=== PATIENT | male | born 1965 | race African-American/Black ===

== ENCOUNTER 2018-05-07 17:21 | Emergency (ER) | payer OTHER ==
[2018-05-07 18:10] LABS: Absolute Lymphocytes (CBC) 1.1 K/uL (0.7-4.9); Absolute Monocytes 0.8 K/uL (0.1-1.3); Absolute Neutrophil 4.7 K/uL (1.8-8.0); Basophils % 0.6 % (0-1.3); Eosinophils % 1.3 % (0-4.4); Hematocrit 42.6 % (39.6-49.0); Lymphocytes % 15.9 % (15.3-44.8); MPV 8.2 fL (7.6-11.3); Monocytes % 11.3 % (3.3-12.3); RBC Red Blood Cell Count 5.25 M/uL (4.33-5.43)
[2018-05-07 18:12] LABS: Protime INR 1.05
[2018-05-07 18:17] LABS: Urine Blood NEGATIVE (NEG); Urine Glucose NEGATIVE (NEG); Urine Protein NEGATIVE (NEG); Urine pH 5.5 (5.0-7.0)
[2018-05-07 18:26] LABS: ALT/SGPT 29 U/L (12-78); AST/SGOT 22 U/L (15-37); Albumin 3.9 g/dL (3.4-5.0); Alkaline Phosphatase 66 U/L (45-117); BUN Blood Urea Nitrogen 11 mg/dL (7-18); Bicarbonate 28 mmol/L (21-32); Bilirubin Direct 0.2 mg/dL (0-0.2); Bilirubin Total 0.6 mg/dL (0.2-1.0); Glucose Level 93 mg/dL (74-106); Magnesium 2.1 mg/dL (1.8-2.4); NT PRO-BNP 19 pg/mL (<125); Potassium 3.2 mmol/L (3.5-5.1); Protein, Total 7.9 g/dL (6.4-8.2); Sodium Level 136 mmol/L (136-145); Troponin (Emerg Dept Use Only) < 0.02 ng/mL (0.0-0.045)
--- NOTE | 2018-05-07 18:38 | RAD REPORT ---
EXAM DESCRIPTION: RAD - Chest Single View - 05/07/2018 6:06 pm CLINICAL HISTORY: CHEST PAIN Chest pain. COMPARISON: CHEST SINGLE VIEW dated 11/04/2008 FINDINGS: Portable technique limits examination quality. The lungs are grossly clear. The heart is normal in size. No displaced fractures. IMPRESSION: No acute intrathoracic process suspected.
--- NOTE | 2018-05-07 20:05 | EDPHYS ---
Physician Documentation [facility] Name: Stefan Nicolas Age: 52 yrs Sex: Male : 1965 Arrival Date: 05/07/2018 Time: 17:26 Bed 18 Private MD: out of town, doctor ED Physician Lavelle Martinez HPI: 05/07 17:42 This 52 yrs old Black Male presents to ER via Ambulatory with complaints of Chest jmm Tightness, Sinus Congestion, Ear Pain. 17:42 The patient or guardian reports cough. Onset: The symptoms/episode began/occurred jmm gradually, 1 week(s) ago. Associated signs and symptoms:. This is a 52 year old male with a history of htn, hlp that presents to the ED with complaints of right frontal sinus pain, cough, congestion for 1 week. Denies fever. patient states approx 2 hour prior to arrival he developed left sided chest tightness which radiates to his back. . Historical: - Allergies: 17:32 No Known Allergies; hj - Home Meds: 17:32 escitalopram oxalate 10 mg oral tab 1 tab once daily [Active]; aspirin 81 mg Oral chew hj 1 tab once daily [Active]; rosuvastatin 20 mg oral tab 1 tab once daily [Active]; losartan-hydrochlorothiazide 100-25 mg oral tab 1 tab once daily [Active]; amlodipine 10 mg tab 1 tab once daily [Active]; - PMHx: 17:32 Hypertension; Hyperlipidemia; hj - PSHx: 17:32 achilles surgery; hj - Immunization history:: Adult Immunizations up to date. - Social history:: Smoking status: Patient/guardian denies using tobacco, Patient uses alcohol. - Ebola Screening: : Patient negative for fever greater than or equal to 101.5 degrees Fahrenheit, and additional compatible Ebola Virus Disease symptoms Patient denies exposure to infectious person Patient denies travel to an Ebola-affected area in the 21 days before illness onset. ROS: 17:42 Constitutional: Negative for fever, chills, and weight loss. jmm 17:42 ENT: Positive for sinus congestion, sinus pain. 17:42 Cardiovascular: Positive for chest pain. 17:42 Respiratory: Positive for cough. 17:42 All other systems are negative. Exam: 17:42 Constitutional: This is a well developed, well nourished patient who is awake, alert, jmm and in no acute distress. Head/Face: atraumatic. Eyes: EOMI, no conjunctival erythema appreciated ENT: Moist Mucus Membranes Neck: Trachea midline, Supple Chest/axilla: Normal chest wall appearance and motion. 17:42 Cardiovascular: Rate: normal, Rhythm: regular. 17:42 Respiratory: the patient does not display signs of respiratory distress, Respirations: normal, Breath sounds: are clear throughout. 17:42 Abdomen/GI: Inspection: abdomen appears normal, Bowel sounds: normal. 17:42 Back: ROM is normal. 17:42 Musculoskeletal/extremity: ROM: intact in all extremities. 17:42 Skin: Appearance: Color: 17:42 Neuro: Orientation: is normal, Mentation: is normal, Memory: is normal. 17:42 Psych: Behavior/mood is pleasant, cooperative. Vital Signs: 17:33 BP 140 / 99; Pulse 75; Resp 18; Temp 97.9(O); Pulse Ox 100% on R/A; Weight 99.79 kg; Height 6 ft. 3 in. (190.50 cm); Pain 3/10; 17:50 BP 140 / 96; Pulse 69; Resp 18; Pulse Ox 99% on R/A; Pain 1/10; em 18:44 BP 130 / 96; Pulse 72; Resp 14; Pulse Ox 100% on R/A; em 19:15 BP 139 / 98; Pulse 85; Resp 17 S; Pulse Ox 99% on R/A; jd3 17:33 Body Mass Index 27.50 (99.79 kg, 190.50 cm) MDM: 17:42 Patient medically screened. [facility] 19:11 Data reviewed: vital signs, nurses notes. [facility] 19:59 Data reviewed: lab test result(s). Counseling: I had a detailed discussion with the [facility] patient and/or guardian regarding: the historical points, exam findings, and any diagnostic results supporting the discharge/admit diagnosis, lab results, radiology results, the need for outpatient follow up, to return to the emergency department if symptoms worsen or persist or if there are any questions or concerns that arise at home. Refusal of service: The patient/guardian displays adequate decision making capability and despite a detailed discussion of alternatives, benefits, risks, and consequences refuses: Admission to the hospital for further work-up and treatment. ED course: Repeat enzymes negative. I advised the patient to follow up with his pcp for reevaluation. I advised the patient of the need for admission due to cardiac risk factors and risks of undiagnosed acute cardiac conditions. . 05/07 17:44 Order name: Basic Metabolic Panel; Complete Time: 18:34 [facility] 05/07 17:44 Order name: CBC with Diff; Complete Time: 18:34 [facility] 05/07 17:44 Order name: LFT's; Complete Time: 18:34 [facility] 05/07 17:44 Order name: Magnesium; Complete Time: 18:34 [facility] 05/07 17:44 Order name: NT PRO-BNP; Complete Time: 18:34 [facility] 05/07 17:44 Order name: PT-INR; Complete Time: 18:34 [facility] 05/07 17:34 Order name: EKG; Complete Time: 17:35 05/07 17:44 Order name: Troponin (emerg Dept Use Only); Complete Time: 18:34 [facility] 05/07 17:44 Order name: XRAY Chest (1 view); Complete Time: 18:40 [facility] 05/07 17:44 Order name: Cardiac monitoring; Complete Time: 18:06 [facility] 05/07 17:44 Order name: EKG - Nurse/Tech; Complete Time: 18:06 [facility] 05/07 17:44 Order name: IV Saline Lock; Complete Time: 18:06 [facility] 05/07 18:00 Order name: Urine Dipstick--Ancillary (enter results); Complete Time: 18:34 sd 05/07 19:11 Order name: Troponin (emerg Dept Use Only); Complete Time: 19:57 [facility] 05/07 17:44 Order name: Labs collected and sent; Complete Time: 18:06 [facility] 05/07 17:44 Order name: O2 Per Protocol; Complete Time: 18:06 [facility] 05/07 17:44 Order name: O2 Sat Monitoring; Complete Time: 18:06 [facility] 05/07 17:49 Order name: Urine Dipstick-Ancillary (obtain specimen); Complete Time: 18:05 [facility] 05/07 19:11 Order name: EKG - Nurse/Tech; Complete Time: 19:27 jm Administered Medications: No medications were administered Disposition: 05/08 17:38 Co-signature as Attending Physician, Lavelle Martinez MD. Disposition: 05/07/18 20:04 Discharged to Home. Impression: Acute upper respiratory infection, unspecified, Chest pain, unspecified. - Condition is Stable. - Discharge Instructions: Nonspecific Chest Pain, Upper Respiratory Infection, Adult. - Prescriptions for Zithromax Z- Geovanni 250 mg Oral Tablet - take 1 tablet by ORAL route as directed for 5 days Day 1 - take two (2) tablets one time. Day 2, 3, 4 , 5 take one (1) tablet once daily.; 6 tablet. - Medication Reconciliation Form, Thank You Letter, Antibiotic Education, Prescription Opioid Use form. - Follow up: Private Physician; When: 1 - 2 days; Reason: Recheck today's complaints, Continuance of care, Re-evaluation by your physician. Signatures: Dispatcher [employer] EDMS Bala Jimenes PA PA jmm Joaquin, Henry, RN RN hj Lavelle Martinez MD MD gs Davies, Jonathon, RN RN jd3 Corrections: (The following items were deleted from the chart) 05/07 20:28 20:04 05/07/2018 20:04 Discharged to Home. Impression: Acute upper respiratory jd3 infection, unspecified; Chest pain, unspecified. Condition is Stable. Forms are Medication Reconciliation Form, Thank You Letter, Antibiotic Education, Prescription Opioid Use. Follow up: Private Physician; When: 1 - 2 days; Reason: Recheck today's complaints, Continuance of care, Re-evaluation by your physician. tricia
--- NOTE | 2018-05-07 20:05 | ER ---
Nurse's Notes [facility] Name: Stefan Nicolas Age: 52 yrs Sex: Male : 1965 Arrival Date: 05/07/2018 Time: 17:26 Bed 18 Private MD: out of town, doctor Diagnosis: Acute upper respiratory infection, unspecified;Chest pain, unspecified Presentation: 05/07 17:28 Presenting complaint: Patient states: an hour ago, i started like feeling crampy on my hj chest, denies radiating pain; now, my R ear hurts too; denies fever , reports sweats;. Transition of care: patient was not received from another setting of care. Onset of symptoms was May 07, 2018. Risk Assessment: Do you want to hurt yourself or someone else? Patient reports no desire to harm self or others. Initial Sepsis Screen: Does the patient meet any 2 criteria? No. Patient's initial sepsis screen is negative. Does the patient have a suspected source of infection? No. Patient's initial sepsis screen is negative. Care prior to arrival: None. 17:28 Method Of Arrival: Ambulatory 17:28 Acuity: SHREYAS 3 Triage Assessment: 17:32 General: Appears in no apparent distress. uncomfortable, Behavior is calm, cooperative, hj appropriate for age. Pain: Complains of pain in chest. Cardiovascular: Capillary refill < 3 seconds Patient's skin is warm and dry. Historical: - Allergies: 17:32 No Known Allergies; hj - Home Meds: 17:32 escitalopram oxalate 10 mg oral tab 1 tab once daily [Active]; aspirin 81 mg Oral chew hj 1 tab once daily [Active]; rosuvastatin 20 mg oral tab 1 tab once daily [Active]; losartan-hydrochlorothiazide 100-25 mg oral tab 1 tab once daily [Active]; amlodipine 10 mg tab 1 tab once daily [Active]; - PMHx: 17:32 Hypertension; Hyperlipidemia; hj - PSHx: 17:32 achilles surgery; hj - Immunization history:: Adult Immunizations up to date. - Social history:: Smoking status: Patient/guardian denies using tobacco, Patient uses alcohol. - Ebola Screening: : Patient negative for fever greater than or equal to 101.5 degrees Fahrenheit, and additional compatible Ebola Virus Disease symptoms Patient denies exposure to infectious person Patient denies travel to an Ebola-affected area in the 21 days before illness onset. Screenin:32 Abuse screen: Denies threats or abuse. Denies injuries from another. Nutritional hj screening: No deficits noted. Tuberculosis screening: No symptoms or risk factors identified. Fall Risk None identified. Assessment: 17:32 Pain: Pain does not radiate. Pain began 3 hours ago. hj 17:45 General: Appears in no apparent distress. comfortable, Behavior is calm, cooperative, em Denies fever. Pain: Complains of pain in anterior aspect of left upper chest Pain radiates to back Quality of pain is described as aching, Pain began 3 hours ago. Is intermittent. Neuro: Level of Consciousness is awake, alert, obeys commands, Oriented to person, place, time, situation, Denies dizziness. Cardiovascular: Reports chest pain, diaphoresis, Denies palpitations, shortness of breath, Patient's skin is warm and dry. Rhythm is sinus rhythm. Respiratory: Reports cough that is productive, Airway is patent Respiratory effort is even, unlabored, Respiratory pattern is regular, symmetrical, Breath sounds are clear bilaterally. GI: Abdomen is flat, Reports nausea. : Urine is clear. Derm: Skin is intact, is healthy with good turgor, Skin is pink, warm \T\ dry. Musculoskeletal: Range of motion: intact in all extremities. 18:00 Reassessment: Patient appears in no apparent distress at this time. I agree with above iw assessment by Glenn Meyers LVN. 18:43 Reassessment: Patient appears in no apparent distress at this time. Patient and/or em family updated on plan of care and expected duration. Pain level reassessed. Patient is alert, oriented x 3, equal unlabored respirations, skin warm/dry/pink. provider at bedside discussing POC. 19:15 Reassessment: Patient appears in no apparent distress at this time. Patient and/or jd3 family updated on plan of care and expected duration. Pain level reassessed. Patient is alert, oriented x 3, equal unlabored respirations, skin warm/dry/pink. pt reporting wanting to go home, provider notified, new orders received. 20:25 Reassessment: Patient appears in no apparent distress at this time. Patient and/or jd3 family updated on plan of care and expected duration. Pain level reassessed. Patient is alert, oriented x 3, equal unlabored respirations, skin warm/dry/pink. Vital Signs: 17:33 BP 140 / 99; Pulse 75; Resp 18; Temp 97.9(O); Pulse Ox 100% on R/A; Weight 99.79 kg; hj Height 6 ft. 3 in. (190.50 cm); Pain 3/10; 17:50 BP 140 / 96; Pulse 69; Resp 18; Pulse Ox 99% on R/A; Pain 1/10; em 18:44 BP 130 / 96; Pulse 72; Resp 14; Pulse Ox 100% on R/A; em 19:15 BP 139 / 98; Pulse 85; Resp 17 S; Pulse Ox 99% on R/A; jd3 17:33 Body Mass Index 27.50 (99.79 kg, 190.50 cm) ED Course: 17:26 Patient arrived in ED. mr 17:27 out of town, doctor is Private Physician. mr 17:30 Triage completed. 17:32 Arm band placed on right wrist. 17:32 Patient has correct armband on for positive identification. Bed in low position. Call light in reach. Side rails up X 1. desk director on. Pulse ox on. NIBP on. 17:32 Patient maintains SpO2 saturation greater than 95% on room air. 17:35 Bala Jimenes PA is PHCP. [facility] 17:35 Lavelle Martinez MD is Attending Physician. jmm 17:35 Glenn Meyers LVN is Primary Nurse. em 17:57 Urine collected: clean catch specimen, clear. mh5 18:07 XRAY Chest (1 view) In Process Unspecified. EDMS 19:10 Report received from Beatris CRAWFORD. jd3 19:27 Troponin (emerg Dept Use Only) Sent. jd3 19:31 EKG done, by ED staff, reviewed by Bala GARNER. jd3 20:26 No provider procedures requiring assistance completed. IV discontinued, intact, jd3 bleeding controlled, No redness/swelling at site. Pressure dressing applied. Administered Medications: No medications were administered Outcome: 20:04 Discharge ordered by . jmm 20:26 Discharged to home ambulatory, with family. jd3 20:26 Condition: stable 20:26 Discharge instructions given to patient, family, Instructed on discharge instructions, follow up and referral plans. medication usage, Demonstrated understanding of instructions, follow-up care, medications, Prescriptions given X 1. 20:28 Patient left the ED. jd3 Signatures: Dispatcher [employer] Bala Le PA PA jmm WigginsJanice ahmadi mr Meyers, Glenn, DICTATING MACHINE TYPIST DICTATING MACHINE TYPIST Graciela Casper RN RN iw Joaquin, Henry, RN RN Kathie [facility] Celso Malik RN RN jd3 Corrections: (The following items were deleted from the chart) 17:35 17:33 Pulse 75bpm; Resp 18bpm; Pulse Ox 100% RA; Temp 97.9F Oral; 99.79 kg; Height 6 hj ft. 3 in.; BMI: 27.5; Pain 3/10; hj 19:29 19:15 Reassessment: Patient appears in no apparent distress at this time. Patient jd3 and/or family updated on plan of care and expected duration. Pain level reassessed. Patient is alert, oriented x 3, equal unlabored respirations, skin warm/dry/pink. pt reporting wanting to go home, provider notified, new orders received. jd3 21:40 20:25 BP 136 / 97; Pulse 70bpm; Resp 16bpm; Spontaneous; Pulse Ox 99% RA; jd3 jd3
--- NOTE | 2018-05-08 07:40 | EKG ---
Test Date: 2018-05-07 Test Time: 17:44:21 Pulmonologist: ESVIN MEASUREMENT RESULTS: Intervals: Rate: 70 MO: 142 QRSD: 80 QT: 426 QTc: 460 [place]: P: 58 MO: 142 QRS: 15 T: 16 INTERPRETIVE STATEMENTS: Normal sinus rhythm Nonspecific T wave abnormality Abnormal ECG Compared to ECG 11/04/2008 07:32:57 T-wave abnormality now present ST (T wave) deviation no longer present Electronically Signed On 05-08-18 07:39:18 REPORTING DEVELOPER by Nikhil Bonds
--- NOTE | 2018-05-09 07:41 | EKG ---
Test Date: 2018-05-07 Test Time: 19:26:10 [employer]ating [employer]: ESVIN MEASUREMENT RESULTS: Intervals: Rate: 66 MA: 140 QRSD: 82 QT: 438 QTc: 459 [place]: P: 68 MA: 140 QRS: 46 T: 19 INTERPRETIVE STATEMENTS: Normal sinus rhythm Nonspecific T wave abnormality Abnormal ECG Compared to ECG 05/07/2018 17:44:21 No significant changes Electronically Signed On 05-09-18 07:37:52 SALES ADMINISTRATION SPECIALIST by Nikhil Bonds
== END 2018-05-07 20:28 | disposition home or self-care (01) ==
LOC: ER 17:21
DX: J06.9 Acute upper respiratory infection, unspecified (principal); R05 Cough; I10 Essential (primary) hypertension; E78.5 Hyperlipidemia, unspecified; Z79.82 Long term (current) use of aspirin
CPT/HCPCS: 36415; 71045; 80048; 80076; 81003; 83735; 83880; 84484; 85025; 85610; 93005; 99285

== ENCOUNTER 2018-06-04 13:27 | Emergency (ER) | payer OTHER ==
--- OUTSIDE RECORDS SUMMARY | 2018-06-04 13:29 | XMS REPORT | Clinical Summary ---
:1965 [address] [facility] Address [address] [place] [address] Care Team Providers Name Role Phone Sekou Daniel MD Primary Care Provider Allergies Not on File Medications Not on file Active Problems Not on file Social History Tobacco Use Types Packs/Day Years Used Date Never Assessed Sex Assigned at Date Recorded Not on file Job Start Date Occupation Industry Not on file Not on file Not on file Travel History Travel Start Travel End No recent travel history available. Last Filed Vital Signs Not on file Plan of Treatment Not on file Results Not on fileafter 06/03/2017 Insurance Payer Benefit Plan / Group Subscriber ID Type Phone Address [employer] - [employer] SELECT [employer] ACCESS xxxxxxxxxx HMO/POS
--- NOTE | 2018-06-04 15:40 | RAD REPORT ---
EXAM DESCRIPTION: RAD - Chest Single View - 06/04/2018 3:35 pm CLINICAL HISTORY: dizziness Chest pain. COMPARISON: Chest Single View dated 05/07/2018; CHEST SINGLE VIEW dated 11/04/2008 FINDINGS: Portable technique limits examination quality. The lungs are grossly clear. The heart is normal in size. No displaced fractures. IMPRESSION: No acute intrathoracic process suspected.
--- NOTE | 2018-06-04 15:43 | RAD REPORT ---
EXAM DESCRIPTION: CT - Head Brain Wo Cont - 06/04/2018 3:36 pm CLINICAL HISTORY: DIZZINESS Headache, drowsiness COMPARISON: No comparisons TECHNIQUE: All CT scans are performed using dose optimization technique as appropriate and may inclu de automated exposure control or mA/KV adjustment according to patient size. FINDINGS: No intracranial hemorrhage, hydrocephalus or extra-axial fluid collection.No areas of brai n edema or evidence of midline shift. The paranasal sinuses and mastoids are clear except for a 13 mm mucous retention cyst or polyp in the left maxillary antrum. The calvarium is intact. IMPRESSION: No acute intracranial abnormality.
[2018-06-04 15:45] LABS: Absolute Lymphocytes (CBC) 0.6 K/uL (0.7-4.9); Absolute Monocytes 0.7 K/uL (0.1-1.3); Absolute Neutrophil 6.3 K/uL (1.8-8.0); Basophils % 0.4 % (0-1.3); Eosinophils % 0.1 % (0-4.4); Hematocrit 44.8 % (39.6-49.0); Lymphocytes % 8.1 % (15.3-44.8); MPV 8.1 fL (7.6-11.3); Monocytes % 9.6 % (3.3-12.3); RBC Red Blood Cell Count 5.45 M/uL (4.33-5.43)
[2018-06-04 15:48] LABS: Protime INR 1.09
[2018-06-04 16:08] LABS: ALT/SGPT 27 U/L (12-78); AST/SGOT 18 U/L (15-37); Albumin 3.9 g/dL (3.4-5.0); Alkaline Phosphatase 59 U/L (45-117); BUN Blood Urea Nitrogen 9 mg/dL (7-18); Bicarbonate 32 mmol/L (21-32); Bilirubin Direct 0.2 mg/dL (0-0.2); Bilirubin Total 0.8 mg/dL (0.2-1.0); Glucose Level 100 mg/dL (74-106); Magnesium 2.3 mg/dL (1.8-2.4); NT PRO-BNP 15 pg/mL (<125); Potassium 3.6 mmol/L (3.5-5.1); Protein, Total 7.9 g/dL (6.4-8.2); Sodium Level 137 mmol/L (136-145); Troponin (Emerg Dept Use Only) < 0.02 ng/mL (0.0-0.045)
--- NOTE | 2018-06-04 16:47 | ER ---
Nurse's Notes [facility] Name: Stefan Nicolas Age: 52 yrs Sex: Male : 1965 Arrival Date: 06/04/2018 Time: 13:29 Bed 27 Private MD: out of town, doctor Diagnosis: Essential (primary) hypertension;Allergy, unspecified Presentation: 06/04 14:04 Presenting complaint: Presenting complaint: Patient states: "I have a runny nose and my aa5 red eye is red and tearing". Pt states "my blood pressure was high today". Pt states "I was driving when I felt hot all over and dizzy and it lasted about 20 seconds and my right eye was blurry". 14:04 Transition of care: patient was not received from another setting of care. Onset of aa5 symptoms was June 04, 2018. Risk Assessment: Do you want to hurt yourself or someone else? Patient reports no desire to harm self or others. Initial Sepsis Screen: Does the patient meet any 2 criteria? No. Patient's initial sepsis screen is negative. Does the patient have a suspected source of infection? No. Patient's initial sepsis screen is negative. Care prior to arrival: None. 14:04 Method Of Arrival: Ambulatory aa5 14:04 Acuity: SHREYAS 3 aa5 Historical: - Allergies: 14:04 No Known Allergies; aa5 - PMHx: 14:04 Hyperlipidemia; Hypertension; aa5 - PSHx: 14:04 achilles surgery; aa5 - Immunization history:: Adult Immunizations up to date. - Social history:: Smoking status: unknown. - Ebola Screening: : No symptoms or risks identified at this time. Screenin:47 Abuse screen: Denies threats or abuse. Nutritional screening: No deficits noted. la1 Tuberculosis screening: No symptoms or risk factors identified. Fall Risk None identified. Assessment: 14:46 General: Appears in no apparent distress. Behavior is calm, cooperative. Pain: Denies la1 pain. Neuro: Level of Consciousness is awake, alert, obeys commands, Oriented to person, place, time, situation, Adobe Layer Helper are equal bilaterally Moves all extremities. Full function Gait is steady, Speech is normal, Facial symmetry appears normal, Pupils are PERRLA. Cardiovascular: Heart tones S1 S2 present Capillary refill < 3 seconds. Respiratory: Airway is patent Respiratory effort is even, unlabored, Respiratory pattern is regular, symmetrical, Breath sounds are clear bilaterally. GI: No signs and/or symptoms were reported involving the gastrointestinal system. : No signs and/or symptoms were reported regarding the genitourinary system. Vital Signs: 14:07 BP 149 / 106; Pulse 72; Resp 16 S; Temp 98.1(TE); Pulse Ox 99% on R/A; Weight 102.06 kg aa5 (R); Height 6 ft. 3 in. (190.50 cm) (R); Pain 0/10; 14:46 BP 142 / 94; Pulse 71; Resp 18; Pulse Ox 98% on R/A; la1 16:48 BP 140 / 100; Pulse 91; Resp 16; Pulse Ox 98% on R/A; la1 14:07 Body Mass Index 28.12 (102.06 kg, 190.50 cm) aa5 ED Course: 13:29 Patient arrived in ED. mr 13:29 out of town, doctor is Private Physician. mr 14:03 Arm band placed on. aa5 14:07 Triage completed. aa5 14:43 Sekou Saravia, WAREHOUSE ANALYST is PHCP. pm1 14:43 Morro Blanco MD is Attending Physician. pm1 14:46 Brando Ramos, STEPAN is Primary Nurse. la1 14:47 Call light in reach. la1 15:[address] mw3 15:32 X-ray completed. Portable x-ray completed in exam room. Patient tolerated procedure sg4 well. 15:33 XRAY Chest (1 view) In Process Unspecified. EDMS 15:36 CT Head Brain wo Cont In Process Unspecified. EDMS 15:41 CT completed. Patient tolerated procedure well. Patient moved back from CT. mw3 16:48 No provider procedures requiring assistance completed. IV discontinued, intact, la1 bleeding controlled, No redness/swelling at site. Pressure dressing applied. Administered Medications: No medications were administered Outcome: 16:46 Discharge ordered by MD. pm1 17:05 Discharged to home ambulatory. la1 17:05 Condition: stable 17:05 Discharge instructions given to patient, Instructed on discharge instructions, follow up and referral plans. medication usage, Demonstrated understanding of instructions, follow-up care, medications. 17:05 Patient left the ED. la1 Signatures: Dispatcher [employer] Janice Locke mr Powers, Ana RN RN aa5 Brando Ramos RN RN la1 Sekou Saravia, GABRIELA WAREHOUSE ANALYST pm1 Avelina Jackson mw3 Amy Grimaldo 4 Corrections: (The following items were deleted from the chart) 14:04 Presenting complaint: aa5 aa5
--- NOTE | 2018-06-04 16:47 | EDPHYS ---
Physician Documentation [facility] Name: Stefan Nicolas Age: 52 yrs Sex: Male : 1965 Arrival Date: 06/04/2018 Time: 13:29 Bed 27 Private MD: out of town, doctor ED Physician Morro Blanco HPI: 06/04 16:00 This 52 yrs old Black Male presents to ER via Ambulatory with complaints of High Blood pm1 Pressure. 16:00 The patient has elevated blood pressure and discovered this at home. Onset: The pm1 symptoms/episode began/occurred this morning. Modifying factors: The symptoms are aggravated by allergy medication for right eye tearing and runny nose. Associated signs and symptoms: Pertinent negatives: chest pain, dizziness, dyspnea, headache, lightheadedness, nausea, visual changes, vomiting, weakness. Severity of symptoms: in the emergency department the blood pressure is improved. The patient has not experienced similar symptoms in the past. The patient has not recently seen a physician. Historical: - Allergies: 14:04 No Known Allergies; aa5 - PMHx: 14:04 Hyperlipidemia; Hypertension; aa5 - PSHx: 14:04 achilles surgery; aa5 - Immunization history:: Adult Immunizations up to date. - Social history:: Smoking status: unknown. - Ebola Screening: : No symptoms or risks identified at this time. ROS: 16:00 Constitutional: Negative for fever, chills, and weight loss, Neck: Negative for injury, pm1 pain, and swelling, Cardiovascular: Negative for chest pain, palpitations, and edema, Respiratory: Negative for shortness of breath, cough, wheezing, and pleuritic chest pain, Abdomen/GI: Negative for abdominal pain, nausea, vomiting, diarrhea, and constipation, Back: Negative for injury and pain, : Negative for injury, bleeding, discharge, and swelling, MS/Extremity: Negative for injury and deformity, Skin: Negative for injury, rash, and discoloration. 16:00 Eyes: Positive for Tearing from right eye. 16:00 ENT: Positive for nasal discharge, Negative for drainage from ear(s), ear pain. Exam: 16:00 Constitutional: This is a well developed, well nourished patient who is awake, alert, pm1 and in no acute distress. Head/Face: Normocephalic, atraumatic. 16:00 ENT: Nares patent. No nasal discharge, no septal abnormalities noted. Tympanic membranes are normal and external auditory canals are clear. Oropharynx with no redness, swelling, or masses, exudates, or evidence of obstruction, uvula midline. Mucous membranes moist. Neck: Trachea midline, no thyromegaly or masses palpated, and no cervical lymphadenopathy. Supple, full range of motion without nuchal rigidity, or vertebral point tenderness. No Meningismus. Chest/axilla: Normal chest wall appearance and motion. Nontender with no deformity. No lesions are appreciated. Cardiovascular: Regular rate and rhythm with a normal S1 and S2. No gallops, murmurs, or rubs. Normal PMI, no JVD. No pulse deficits. Respiratory: Lungs have equal breath sounds bilaterally, clear to auscultation and percussion. No rales, rhonchi or wheezes noted. No increased work of breathing, no retractions or nasal flaring. Abdomen/GI: Soft, non-tender, with normal bowel sounds. No distension or tympany. No guarding or rebound. No evidence of tenderness throughout. Back: No spinal tenderness. No costovertebral tenderness. Full range of motion. Skin: Warm, dry with normal turgor. Normal color with no rashes, no lesions, and no evidence of cellulitis. MS/ Extremity: Pulses equal, no cyanosis. Neurovascular intact. Full, normal range of motion. 16:00 Eyes: Periorbital structures: appear normal, no abrasion, no cellulitis, no contusion, no ecchymosis, no erythema, no laceration, no swelling, Pupils: no acute changes, normal size, normal reaction to light, Extraocular movements: intact throughout, Conjunctiva: injected, in the right eye, tearing, Corneas: no acute changes, Sclera: no acute changes, Lids and lashes: appear normal, bilaterally. 16:00 Neuro: Orientation: is normal, Cranial nerves: CN II- XII are normal as tested, Cerebellar function: normal finger to nose testing, heel to mcgregor testing is normal, Motor: is normal, moves all fours, Sensation: is normal, no obvious gross deficits, Gait: is steady, at a normal pace, without difficulty. Vital Signs: 14:07 BP 149 / 106; Pulse 72; Resp 16 S; Temp 98.1(TE); Pulse Ox 99% on R/A; Weight 102.06 kg aa5 (R); Height 6 ft. 3 in. (190.50 cm) (R); Pain 0/10; 14:46 BP 142 / 94; Pulse 71; Resp 18; Pulse Ox 98% on R/A; la1 16:48 BP 140 / 100; Pulse 91; Resp 16; Pulse Ox 98% on R/A; la1 14:07 Body Mass Index 28.12 (102.06 kg, 190.50 cm) aa5 MDM: 15:17 Patient medically screened. pm1 16:45 Data reviewed: vital signs. Data interpreted: Pulse oximetry: on room air is 98 %. pm1 Interpretation: normal. Counseling: I had a detailed discussion with the patient and/or guardian regarding: the historical points, exam findings, and any diagnostic results supporting the discharge/admit diagnosis, lab results, radiology results, the need for outpatient follow up, to return to the emergency department if symptoms worsen or persist or if there are any questions or concerns that arise at home. 06/04 15:18 Order name: NT PRO-BNP; Complete Time: 16:14 pm1 06/04 15:18 Order name: Basic Metabolic Panel; Complete Time: 16:14 pm1 06/04 15:18 Order name: CBC with Diff; Complete Time: 16:02 pm1 06/04 15:18 Order name: LFT's; Complete Time: 16:14 pm1 06/04 15:18 Order name: Magnesium; Complete Time: 16:14 pm1 06/04 15:18 Order name: PT-INR; Complete Time: 16:02 pm1 06/04 15:18 Order name: CT Head Brain wo Cont; Complete Time: 15:48 pm1 06/04 15:18 Order name: Troponin (emerg Dept Use Only); Complete Time: 16:14 pm1 06/04 15:18 Order name: XRAY Chest (1 view); Complete Time: 15:48 pm1 06/04 15:18 Order name: EKG; Complete Time: 15:19 pm1 06/04 15:18 Order name: Cardiac monitoring; Complete Time: 15:40 pm1 06/04 15:18 Order name: EKG - Nurse/Tech; Complete Time: 15:40 pm1 06/04 15:18 Order name: IV Saline Lock; Complete Time: 15:40 pm1 06/04 15:18 Order name: Labs collected and sent; Complete Time: 15:40 pm1 06/04 15:18 Order name: O2 Per Protocol; Complete Time: 15:40 pm1 06/04 15:18 Order name: O2 Sat Monitoring; Complete Time: 15:40 pm1 Administered Medications: No medications were administered Disposition: 17:10 Co-signature as Attending Physician, Morro Blanco MD. rn Disposition: 06/04/18 16:46 Discharged to Home. Impression: Essential (primary) hypertension, Allergy, unspecified. - Condition is Stable. - Discharge Instructions: Hypertension, Allergic Rhinitis, How to Take Your Blood Pressure, [id number]-[id number], DASH Eating Plan, Managing Your Hypertension. - Medication Reconciliation Form, Thank You Letter form. - Follow up: Emergency Department; When: As needed; Reason: Worsening of condition. Follow up: Private Physician; When: 2 - 3 days; Reason: Recheck today's complaints, Continuance of care, Re-evaluation by your physician. - Problem is new. - Symptoms have improved. Signatures: Dispatcher [employer] EDTN Morro Blanco MD MD rn Calderon, Audri, RN RN aa5 Brando Ramos RN RN la1 Sekou Saravia, OUTBOARD TECHNICIAN OUTBOARD TECHNICIAN pm1 Corrections: (The following items were deleted from the chart) 17:05 16:46 06/04/2018 16:46 Discharged to Home. Impression: Essential (primary) la1 hypertension; Allergy, unspecified. Condition is Stable. Forms are Medication Reconciliation Form, Thank You Letter, Antibiotic Education, Prescription Opioid Use. Follow up: Emergency Department; When: As needed; Reason: Worsening of condition. Follow up: Private Physician; When: 2 - 3 days; Reason: Recheck today's complaints, Continuance of care, Re-evaluation by your physician. Problem is new. Symptoms have improved. pm1
--- NOTE | 2018-06-05 12:27 | EKG ---
Test Date: 2018-06-04 Test Time: 15:27:13 Elevator Inspector: LA MEASUREMENT RESULTS: Intervals: Rate: 68 IN: 136 QRSD: 80 QT: 414 QTc: 440 [place]: P: 47 IN: 136 QRS: 5 T: -4 INTERPRETIVE STATEMENTS: Normal sinus rhythm Minimal voltage criteria for LVH, may be normal variant Nonspecific T wave abnormality Abnormal ECG Compared to ECG 05/07/2018 19:26:10 Left ventricular hypertrophy now present T-wave abnormality still present Electronically Signed On 06-05-18 12:24:32 CDT by Nikhil Bonds
== END 2018-06-04 17:05 | disposition home or self-care (01) ==
LOC: ER 13:27
DX: I10 Essential (primary) hypertension (principal); E78.5 Hyperlipidemia, unspecified; T78.40XA Allergy, unspecified, initial encounter
CPT/HCPCS: 36415; 70450; 71045; 80048; 80076; 83735; 83880; 84484; 85025; 85610; 93005; 99284

== ENCOUNTER 2023-11-30 17:25 | Emergency (ER) | payer OTHER ==
[2023-11-30 18:09] LABS: Absolute Eosinophils 0.1 K/uL (0-0.5); Absolute Monocytes 0.8 K/uL (0.1-1.3); Absolute Neutrophil 6.2 K/uL (1.8-8.0); Basophils % 0.4 % (0-1.3); Hematocrit 43.2 % (39.6-49.0); Hemoglobin 14.1 g/dL (13.6-17.9); Lymphocytes % 12.2 % (15.3-44.8); MCH 26.8 pg (27.0-35.0); MCHC 32.7 g/dL (32.0-36.0); MCV 81.8 fL (80-100); Monocytes % 9.3 % (3.3-12.3); Neutrophils % 77.1 % (41.7-73.7); Nucleated Red Blood Cells % 0.1 % (0-0); Platelets 251 thou/uL (152-406); RBC Red Blood Cell Count 5.28 M/uL (4.33-5.43)
[2023-11-30 18:13] LABS: PT Prothrombin Time 11.4 SECONDS (9.4-12.5); PTT, Activated Partial Thromb 32.1 SECONDS (24.3-36.9); Protime INR 1.02
--- NOTE | 2023-11-30 18:24 | RAD REPORT ---
EXAM DESCRIPTION: CT - Head Brain Wo Cont - 11/30/2023 6:16 pm CLINICAL HISTORY: Dizziness;Weakness Headache COMPARISON: Head Brain Wo Cont dated 06/04/2018 TECHNIQUE: All CT scans are performed using dose optimization technique as appropriate and may inclu de automated exposure control or mA/KV adjustment according to patient size. FINDINGS: No intracranial hemorrhage, hydrocephalus or extra-axial fluid collection.No areas of brai n edema or evidence of midline shift. The paranasal sinuses and mastoids are clear. The calvarium is intact. IMPRESSION: No acute intracranial abnormality.
--- NOTE | 2023-11-30 18:24 | RAD REPORT ---
EXAM DESCRIPTION: RAD - Chest Single View - 11/30/2023 6:20 pm CLINICAL HISTORY: MALAISE Chest pain. COMPARISON: Chest Single View dated 06/04/2018; Chest Single View dated 05/07/2018; CHEST SINGLE VIEW dated 11/04/2008 FINDINGS: Portable technique limits examination quality. The lungs are grossly clear. The heart is normal in size. No displaced fractures. IMPRESSION: No acute intrathoracic process suspected.
[2023-11-30 18:33] LABS: ALT/SGPT 31 U/L (16-61); AST/SGOT 16 U/L (15-37); Albumin 3.7 g/dL (3.4-5.0); Albumin/Globulin Ratio 0.9 (1.1-1.8); Alkaline Phosphatase 67 U/L (45-117); Anion Gap 7.8 mEq/L (5.0-15.0); BUN Blood Urea Nitrogen 11 mg/dL (7-18); Bicarbonate 28 mEq/L (21-32); Bilirubin Total 0.4 mg/dL (0.2-1.0); Glomerular Filtration Rate 87 ml/min (=/>90); Glucose Level 120 mg/dL (74-106); Potassium 2.8 mEq/L (3.5-5.1); Protein, Total 7.7 g/dL (6.4-8.2); Sodium Level 134 mEq/L (136-145); Troponin High Sensitivity 5.3 pg/mL (<58.9)
[2023-11-30 18:34] LABS: Bilirubin Direct < 0.2 mg/dL (0-0.2); Bilirubin Indirect, Calculated 0.2 mg/dL (0.2-0.8)
[2023-11-30] MEDS ORDERED: POTASSIUM 25 MEQ EFFERV TAB ONE (19:08)
[2023-11-30 19:25] LABS: Specific Gravity 1.013 (1.005-1.030); Urine Bilirubin NEGATIVE (Negative); Urine Blood Negative (Negative); Urine Clarity Clear (Clear); Urine Color Colorless (Yellow); Urine Glucose NEGATIVE (Negative); Urine Ketones NEGATIVE (Negative); Urine Microscopic Reflex YN NO UMIC; Urine Nitrite NEGATIVE (Negative); Urine Protein NEGATIVE (Negative); Urine Urobilinogen Normal (Normal)
[2023-11-30] MEDS ORDERED: NA CHLORIDE 0.9% 1,000 ML ONE (19:33)
--- NOTE | 2023-11-30 22:01 | EDPHYS ---
Physician Documentation [facility] Name: Stefan Nicolas Age: 58 yrs Sex: Male : 1965 Arrival Date: 11/30/2023 Time: 17:25 Bed 14 Private MD: ED Physician Nahid Ngo HPI: 11/29 20:31 This 58 yrs old Black Male presents to ER via EMS with complaints of Dizziness. kb 20:31 Pt is a 58 year old male who presents for dizziness and weakness that started while kb walking out to his car after work. States he has had this happen before and it was due to low potassium. Denies chest pain. States the weakness was generalized. . Historical: - Allergies: 17:17 No Known Allergies; db - PMHx: 17:17 Hyperlipidemia; Hypertension; db - Immunization history:: Adult Immunizations unknown. - Infectious Disease History:: Denies. - Social history:: Smoking status: Patient denies any tobacco usage or history of. ROS: 18:55 Constitutional: As per HPI kb Exam: 18:55 Constitutional: This is a well developed, well nourished patient who is awake, alert, kb and in no acute distress. Head/Face: Normocephalic, atraumatic. ENT: Moist Mucous membranes Cardiovascular: Regular rate Respiratory: Respirations even and unlabored. No increased work of breathing. Talking in full sentences Abdomen/GI: Soft, non-tender. No distention Skin: Warm, dry with normal turgor. Normal color. MS/ Extremity: Pulses equal, no cyanosis. Neurovascular intact. Full, normal range of motion. Neuro: Awake and alert, GCS 15, oriented to person, place, time, and situation. Moves all extremities. Normal gait. 18:55 ECG was reviewed by the Attending Physician. Vital Signs: 17:17 BP 160 / 95; Pulse 85; Resp 14; Temp 98.6; Pulse Ox 100% ; Weight 99.79 kg; Height 6 db ft. 3 in. ; Pain 0/10; 18:42 BP 150 / 100; Pulse 75; Resp 18; Pulse Ox 100% on R/A; db 19:33 BP 152 / 98; Pulse 72; Resp 18; Pulse Ox 99% on R/A; kj2 20:33 BP 156 / 95; Pulse 77; Resp 18; kj2 21:31 BP 121 / 94; Pulse 70; Resp 18; kj2 22:02 BP 143 / 97; Pulse 68; Resp 16; Temp 98; Pulse Ox 99% on R/A; kj2 17:17 Body Mass Index 27.50 (99.79 kg, 190.5 cm) db 17:17 Pain Scale: Adult db MDM: 17:29 Patient medically screened. kb 20:32 Differential diagnosis: cardiac arrhythmia, generalized weakness, hypovolemia, TIA, kb vertigo, abnormal electrolytes. Data reviewed: vital signs, nurses notes. 20:32 Historians other than the Patient: EMS: [facility]. Counseling: I had a detailed kb discussion with the patient and/or guardian regarding the historical points, exam findings, and any diagnostic results supporting the discharge/admit diagnosis, lab results, radiology results, the need for outpatient follow up, a family practitioner, to return to the emergency department if symptoms worsen or persist or if there are any questions or concerns that arise at home. ED course: Pt feeling better after treatment. Educated to follow up with PCP and on return precautions. Verbal understanding received. . 11/29 17:34 Order name: Basic Metabolic Panel; Complete Time: 18:46 kb 11/29 17:34 Order name: CBC with Diff; Complete Time: 18:20 kb 11/29 17:34 Order name: Hepatic Function; Complete Time: 18:46 kb 11/29 17:34 Order name: Magnesium; Complete Time: 18:46 kb 11/29 17:34 Order name: Protime (+inr); Complete Time: 18:13 kb 11/29 17:34 Order name: Ptt, Activated; Complete Time: 18:13 kb 11/29 17:34 Order name: Troponin High Sensitivity; Complete Time: 18:46 kb 11/29 17:34 Order name: Urinalysis w/ reflexes; Complete Time: 19:26 kb 11/29 17:42 Order name: Glucose, Ancillary Testing; Complete Time: 17:46 EDMS 11/29 19:27 Order name: Troponin High Sensitivity; Complete Time: 21:56 kb 11/29 17:34 Order name: Chest Single View XRAY; Complete Time: 18:25 kb 11/29 17:46 Order name: CT Head Brain wo Cont; Complete Time: 18:25 kb 11/29 17:34 Order name: EKG; Complete Time: 17:35 kb 11/29 17:34 Order name: Cardiac monitoring; Complete Time: 17:43 kb 11/29 17:34 Order name: EKG - Nurse/Tech; Complete Time: 18:17 kb 11/29 17:34 Order name: IV Saline Lock; Complete Time: 18:17 kb 11/29 17:34 Order name: Labs collected and sent; Complete Time: 18:17 kb 11/29 17:34 Order name: NPO; Complete Time: 18:17 kb 11/29 17:34 Order name: O2 Per Protocol; Complete Time: 18:17 kb 11/29 17:34 Order name: O2 Sat Monitoring; Complete Time: 18:17 kb EC:55 Rate is 76 beats/min. Rhythm is regular. QRS [place] is Normal. MI interval is normal at kb 152 msec. QRS interval is normal at 84 msec. QT interval is normal at 468 msec. Administered Medications: 19:25 Drug: Potassium PO Effervescent Tablet 50 mEq PO once; dissolve in 4 ounces of water or kj2 juice Route: PO; 20:00 Follow up: Response: No adverse reaction kj2 19:40 Drug: NS 0.9% IV 1000 ml IV at 1000 ml once Route: IV; Rate: 1000 ml; Site: left kj2 antecubital; 20:44 Follow up: IV Status: Completed infusion; IV Intake: 1000ml kj2 Point of Care Testing: Blood Glucose: 17:17 Blood Glucose: 116 mg/dL; db Ranges: Critical Glucose Levels:Adult <50 mg/dl or >400 mg/dl <40 mg/dl or >180 mg/dl Disposition Summary: 11/30/23 22:01 Discharge Ordered Notes: Location: Home kb Condition: Stable kb Diagnosis - Hypokalemia kb - Weakness kb Followup: kb - With: Emergency Department - When: As needed - Reason: Worsening of condition Followup: kb - With: Private Physician - When: 2 - 3 days - Reason: Recheck today's complaints, Continuance of care, Re-evaluation by your physician Discharge Instructions: - Discharge Summary Sheet kb - Weakness, Hjby-gr-Sigp kb - Hypokalemia kb Forms: - Medication Reconciliation Form kb - Antibiotic Education kb - Prescription Opioid Use kb - Patient Portal Instructions kb - Leadership Thank You Letter kb Addendum: 12/04/2023 15:48 Co-signature as Attending Physician, Nahid Ngo MD I agree with the assessment and c garcia plan of care. Signatures: Dispatcher [employer] EDMS Bess Farley, PUBLIC HEALTH EDUCATOR-C PUBLIC HEALTH EDUCATOR-Nahid Kern MD MD cha Benton, Danielle, RN RN db Zhanna Rossi, RN RN kj2 Corrections: (The following items were deleted from the chart) 11/29 17:35 17:35 BASIC METABOLIC PANEL+C.LAB.BRZ ordered. EDMS EDMS 17:35 17:35 CBC+H.LAB.BRZ ordered. EDMS EDMS 17:35 17:35 HEPATIC FUNCTION+C.LAB.BRZ ordered. EDMS EDMS 17:35 17:35 MAGNESIUM+C.LAB.BRZ ordered. EDMS EDMS 17:35 17:35 PROTIME (+INR)+COAG.LAB.BRZ ordered. EDMS EDMS 17:35 17:35 PTT, ACTIVATED+COAG.LAB.BRZ ordered. EDMS EDMS 17:35 17:35 Troponin High Sensitivity+C.LAB.BRZ ordered. EDMS EDMS 17:35 17:35 Urinalysis+U.LAB.BRZ ordered. EDMS EDMS 17:35 17:17 Allergies: Aspirin; db db 17:35 17:17 Home Meds: amlodipine 10 mg tab 1 tab once daily; db db 19:27 19:27 Troponin High Sensitivity+C.LAB.BRZ ordered. EDMS EDMS
--- NOTE | 2023-11-30 22:01 | ER ---
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 STATES HAS BEEN HAVING FREQUENT URINATION TODAY. BP FOR EMS 180/150 REPEAT MANUAL BP 220/119. Coronavirus screen: Client denies travel out of the [place] in the last 14 days. At this time, the client does not indicate any symptoms associated with coronavirus-19. Ebola Screen: Patient negative for fever greater than or equal to 101.5 degrees Fahrenheit, and additional compatible Ebola Virus Disease symptoms Patient denies exposure to infectious person. Patient denies travel to an Ebola-affected area in the 21 days before illness onset. No symptoms or risks identified at this time. Initial Sepsis Screen: Does the patient meet any 2 criteria? No. Patient's initial sepsis screen is negative. Does the patient have a suspected source of infection? No. Patient's initial sepsis screen is negative. Risk Assessment: Do you want to hurt yourself or someone else? Patient reports no desire to harm self or others. Onset of symptoms was November 30, 2023 at 16:30. 17:17 Method Of Arrival: EMS: [facility] db 17:17 Acuity: SHREYAS 2 db Triage Assessment: 17:17 General: Appears in no apparent distress. comfortable, Behavior is calm, cooperative, db appropriate for age. Pain: Denies pain. Neuro: Level of Consciousness is awake, alert, obeys commands, Oriented to person, place, time, situation, Moves all extremities. Speech is normal, Facial symmetry appears normal, Reports dizziness. Respiratory: Airway is patent Respiratory effort is even, unlabored, Respiratory pattern is regular, symmetrical. Historical: - Allergies: 17:17 No Known Allergies; db - PMHx: 17:17 Hyperlipidemia; Hypertension; db - Immunization history:: Adult Immunizations unknown. - Infectious Disease History:: Denies. - Social history:: Smoking status: Patient denies any tobacco usage or history of. Screenin:00 [facility] ED Fall Risk Assessment (Adult) History of falling in the last 3 months, db including since admission No falls in past 3 months (0 pts) Confusion or Disorientation No (0 pts) Intoxicated or Sedated No (0 pts) Impaired Gait No (0 pts) Mobility Assist Device Used No (0 pt) Altered Elimination No (0 pt) Score/Fall Risk Level 0 - 2 = Low Risk Oriented to surroundings, Maintained a safe environment. Abuse screen: Denies threats or abuse. Denies injuries from another. Nutritional screening: No deficits noted. Tuberculosis screening: No symptoms or risk factors identified. Assessment: 17:20 Reassessment: SEE TRIAGE FOR INITIAL ASSESSMENT. db 18:00 Reassessment: Patient appears in no apparent distress at this time. Patient and/or db family updated on plan of care and expected duration. Pain level reassessed. Patient is alert, oriented x 3, equal unlabored respirations, skin warm/dry/pink. Patient states feeling better. 19:30 General: Appears in no apparent distress. comfortable, Behavior is calm, cooperative. kj2 Pain: Denies pain. Neuro: Level of Consciousness is awake, alert, obeys commands, Oriented to person, place, time, situation. Cardiovascular: Patient's skin is warm and dry. Respiratory: Airway is patent Respiratory effort is even, unlabored. GI: No signs and/or symptoms were reported involving the gastrointestinal system. Abdomen is round non-distended. : No signs and/or symptoms were reported regarding the genitourinary system. Derm: Skin is healthy with good turgor, Skin is moist, Skin is normal. 20:33 Reassessment: Patient appears in no apparent distress at this time. Patient and/or kj2 family updated on plan of care and expected duration. Pain level reassessed. Patient is alert, oriented x 3, equal unlabored respirations, skin warm/dry/pink. 21:31 Reassessment: Patient and/or family updated on plan of care and expected duration. Pain kj2 level reassessed. Patient is alert, oriented x 3, equal unlabored respirations, skin warm/dry/pink. Patient denies pain at this time. Vital Signs: 17:17 BP 160 / 95; Pulse 85; Resp 14; Temp 98.6; Pulse Ox 100% ; Weight 99.79 kg; Height 6 db ft. 3 in. ; Pain 0/10; 18:42 BP 150 / 100; Pulse 75; Resp 18; Pulse Ox 100% on R/A; db 19:33 BP 152 / 98; Pulse 72; Resp 18; Pulse Ox 99% on R/A; kj2 20:33 BP 156 / 95; Pulse 77; Resp 18; kj2 21:31 BP 121 / 94; Pulse 70; Resp 18; kj2 22:02 BP 143 / 97; Pulse 68; Resp 16; Temp 98; Pulse Ox 99% on R/A; kj2 17:17 Body Mass Index 27.50 (99.79 kg, 190.5 cm) db 17:17 Pain Scale: Adult db ED Course: 17:17 Arm band placed on Patient placed in an exam room. db 17:27 Patient arrived in ED. db 17:29 Bess Far[facility]-C [facility]. kb 17:29 Nahid Ngo MD is Attending Physician. kb 17:33 Triage completed. db 17:35 Brynn Garber, RN is Primary Nurse. db 17:50 Patient has correct armband on for positive identification. Side rails up X 1. Client db placed on continuous cardiac and pulse oximetry monitoring. NIBP monitoring applied. hot plate press operator on. Pulse ox on. NIBP on. Warm blanket given. Pillow given. 17:50 Initial lab(s) drawn, by me, sent to lab. EKG done, by ED staff, reviewed by Bess MOTA. Inserted saline lock: 20 gauge in left antecubital area, using aseptic technique. Blood collected. Flushed with 10 mL NS. 18:18 CT Head Brain wo Cont In Process Unspecified. EDMS 18:22 Chest Single View XRAY In Process Unspecified. EDMS 19:24 Zhanna Rossi, RN is Primary Nurse. kj2 21:24 Troponin High Sensitivity Sent. kj2 21:24 No provider procedures requiring assistance completed. kj2 22:15 Provided Education on: weakness. kj2 22:15 IV discontinued, intact, bleeding controlled, No redness/swelling at site. Pressure kj2 dressing applied. Administered Medications: 19:25 Drug: Potassium PO Effervescent Tablet 50 mEq PO once; dissolve in 4 ounces of water or kj2 juice Route: PO; 20:00 Follow up: Response: No adverse reaction kj2 19:40 Drug: NS 0.9% IV 1000 ml IV at 1000 ml once Route: IV; Rate: 1000 ml; Site: left kj2 antecubital; 20:44 Follow up: IV Status: Completed infusion; IV Intake: 1000ml kj2 Medication: 19:14 VIS not applicable for this client. db Point of Care Testing: Blood Glucose: 17:17 Blood Glucose: 116 mg/dL; db Ranges: Intake: 20:44 IV: 1000ml; Total: 1000ml. kj2 Outcome: 22:01 Discharge ordered by . yanelis 22:04 Discharged to home ambulatory, kj2 22:04 Condition: stable 22:04 Discharge instructions given to patient, Instructed on discharge instructions, follow up and referral plans. Demonstrated understanding of instructions, follow-up care, 22:15 Patient left the ED. kj2 Signatures: Dispatcher [employer] EDMS Bess Farley FNP-C FNP-Ckb Benton, Danielle, RN RN Zhanna Tucker RN RN kj2 Corrections: (The following items were deleted from the chart) 17:35 17:17 Allergies: Aspirin; db db 17:35 17:17 Home Meds: amlodipine 10 mg tab 1 tab once daily; db db
[2023-11-30 22:50] VITALS: O2SAT 99
[2023-11-30 22:54] VITALS: BP 143/97; TEMP 98
--- NOTE | 2023-12-02 16:27 | EKG ---
Test Date: 2023-11-30 Test Time: 17:49:27 Stacker Operator: PILLO MEASUREMENT RESULTS: Intervals: Rate: 76 MI: 152 QRSD: 84 QT: 416 QTc: 468 [place]: P: -18 MI: 152 QRS: 30 T: 40 INTERPRETIVE STATEMENTS: Normal sinus rhythm Nonspecific T wave abnormality Abnormal ECG Compared to ECG 06/04/2018 15:27:13 Left ventricular hypertrophy no longer present T-wave abnormality still present Electronically Signed On 12-02-23 16:23:14 CDT by Jamari Ogden
== END 2023-11-30 22:15 | disposition home or self-care (01) ==
LOC: ER 17:25
DX: E87.6 Hypokalemia (principal); R53.1 Weakness; I10 Essential (primary) hypertension; E78.5 Hyperlipidemia, unspecified
CPT/HCPCS: 93005; 85025; 80048; 36415; 83735; 85610; 82947; 80076; 85730; 81003; 84484 ×2; 70450; 71045; 96360; 99285; J7030